=== PATIENT | female | born 1950 | race Caucasian/White ===

== ENCOUNTER 2021-02-19 20:40 | Inpatient (IN) ==
[2021-02-19] MEDS ORDERED: Vancomycin 2,000 MG/520 ML IV.SOLN IVPB ONE (22:17)
[2021-02-19] MEDS ORDERED: Piperacillin/Tazobactam 3.375 GM in 0.9 % Sodium Chloride Mini Bag 100 ML IVPB ONE (22:17)
[2021-02-19] MEDS ORDERED: Tdap (Boostrix) Vaccine 0.5 ML SYRINGE IM ONE (22:18)
[2021-02-19 22:53] LABS: Basophils # 0.1 K/mcL (0.0-0.2); Basophils % 0.4 %; Eosinophils # 0.2 K/mcL (0.0-0.6); Eosinophils % 1.7 %; Hematocrit 22.7 % (35.3-44.9); Hemoglobin 6.9 g/dL (11.5-15.4); Immature Granulocytes % 0.5 % (0-4); Lymphocytes # 1.9 K/mcL (0.6-4.6); Lymphocytes % 16.3 %; Mean Corpuscular HGB Conc 30.4 g/dL (31.6-35.5); Mean Corpuscular Hemoglobin 27.4 pg (28.0-33.3); Mean Corpuscular Volume 90.1 fL (83.0-100.0); Mean Platelet Volume 9.8 fL (9.4-12.4); Monocytes # 0.9 K/mcL (0.0-1.3); Monocytes % 7.5 %; Neutrophils # 8.4 K/mcL (1.6-8.9); Platelet Count 313 K/mcL (140-400); Red Blood Count 2.52 M/mcL (3.82-4.97); Red Cell Distribution Width 14.8 % (11.5-14.5); Segmented Neutrophils % 73.6 %; White Blood Count 11.4 K/mcL (4.3-11.1)
[2021-02-19 23:15] LABS: BUN/Creatinine Ratio 31 (6-26); Blood Urea Nitrogen 31 mg/dL (8-23); Calcium 9.3 mg/dL (8.6-10.3); Carbon Dioxide 24 mEq/L (23-29); Chloride 103 mEq/L (98-107); Glucose 118 mg/dL (70-105); Osmolality,Calculated 290 (280-300); Sodium 136 mEq/L (136-145); eGFR For African Americans > 60 (> 60); eGFR For Non-African Americans 55 (> 60)
[2021-02-19] MEDS ORDERED: Isovue-370 500 ML BOTTLE IVP ONE (23:49)
[2021-02-20] MEDS ORDERED: Naloxone 0.4 MG/ML INJ IVP PRN (00:46)
[2021-02-20] MEDS ORDERED: Melatonin 3 MG TABLET PO PRN (00:46)
[2021-02-20] MEDS ORDERED: *HR* Dextrose 50 % in Water (Syg) 50 ML SYRINGE IVP PRN (00:51)
[2021-02-20] MEDS ORDERED: D5% in Water 1,000 ML IVC PRN (00:51)
[2021-02-20] MEDS ORDERED: Dextrose Gel 15 GM/37.5 ML TUBE PO PRN ×2 (00:51)
[2021-02-20] MEDS ORDERED: *HR* OxyCODONE Immed Rel 5 MG TABLET PO ONE (01:04)
[2021-02-20] MEDS ORDERED: 0.9 % Sodium Chloride 250 ML ONE (03:13)
[2021-02-20] MEDS: lisinopriL 10 MG TABLET PO SCH (08:20)
[2021-02-20] MEDS: *HR* OxyCODONE Immed Rel 5 MG TABLET PO PRN ×2 (08:20→21:23)
[2021-02-20] MEDS: Insulin LISPRO 300 UNITS/3 ML VIAL SUBQ SCH ×3 (08:21→17:43)
[2021-02-20] MEDS ORDERED: Iron Sucrose Complex 200 MG in 0.9 % Sodium Chloride 100 ML IVPB ONE (09:00)
[2021-02-20 09:16] LABS: BUN/Creatinine Ratio 30 (6-26); Blood Urea Nitrogen 24 mg/dL (8-23); Calcium 8.7 mg/dL (8.6-10.3); Carbon Dioxide 27 mEq/L (23-29); Chloride 106 mEq/L (98-107); Glucose 134 mg/dL (70-105); Osmolality,Calculated 292 (280-300); Potassium 3.9 mEq/L (3.5-5.1); Sodium 138 mEq/L (136-145); eGFR For African Americans > 60 (> 60); eGFR For Non-African Americans > 60 (> 60)
[2021-02-20 09:18] LABS: Hematocrit 24.8 % (35.3-44.9); Hemoglobin 7.6 g/dL (11.5-15.4); Mean Corpuscular HGB Conc 30.6 g/dL (31.6-35.5); Mean Corpuscular Hemoglobin 27.9 pg (28.0-33.3); Mean Corpuscular Volume 91.2 fL (83.0-100.0); Mean Platelet Volume 10.3 fL (9.4-12.4); Platelet Count 307 K/mcL (140-400); Red Blood Count 2.72 M/mcL (3.82-4.97); White Blood Count 10.4 K/mcL (4.3-11.1)
[2021-02-20] MEDS: Piperacillin/Tazobactam 3.375 GM in 0.9 % Sodium Chloride Mini Bag 100 ML IVPB SCH ×2 (09:36→17:42)
[2021-02-20] MEDS ORDERED: Ampicillin/Sulbactam 3,000 MG in 0.9 % Sodium Chloride Mini Bag 100 ML IVPB SCH (10:00)
[2021-02-20] MEDS: Vancomycin 1,250 MG/262.5 ML IV.SOLN IVPB SCH ×2 (12:05→22:30)
[2021-02-20 15:06] LABS: Estimated Average Glucose 123 mg/dl; Hemoglobin A1C 5.9 %
[2021-02-20] MEDS ORDERED: Clindamycin 900 MG/50 ML 900 MG/50 ML IV.SOLN IVPB SCH (16:00)
[2021-02-20] MEDS: *HR* Heparin 5,000 UNIT/ML VIAL SQ SCH (17:43)
[2021-02-20] MEDS ORDERED: Sennosides/Docusate Sodium TABLET PO PRN (17:45)
[2021-02-20] MEDS ORDERED: Insulin LISPRO 300 UNITS/3 ML VIAL SUBQ SCH (21:00)
[2021-02-20] MEDS: Lactobacillus 1 EACH CAP.SPRINK PO SCH (21:15)
[2021-02-20] MEDS: Clindamycin 900 MG/50 ML 900 MG/50 ML IV.SOLN IVPB SCH (21:32)
[2021-02-20] MEDS ORDERED: Nystatin Cream 15 GM TUBE TP PRN (21:55)
[2021-02-21 03:00] LABS: Basophils # 0.1 K/mcL (0.0-0.2); Basophils % 0.5 %; Eosinophils # 0.2 K/mcL (0.0-0.6); Eosinophils % 1.4 %; Hematocrit 23.5 % (35.3-44.9); Hemoglobin 7.2 g/dL (11.5-15.4); Immature Granulocytes % 0.4 % (0-4); Lymphocytes # 1.5 K/mcL (0.6-4.6); Lymphocytes % 13.6 %; Mean Corpuscular HGB Conc 30.6 g/dL (31.6-35.5); Mean Corpuscular Hemoglobin 27.6 pg (28.0-33.3); Mean Platelet Volume 10.1 fL (9.4-12.4); Monocytes # 0.8 K/mcL (0.0-1.3); Monocytes % 7.5 %; Neutrophils # 8.5 K/mcL (1.6-8.9); Platelet Count 301 K/mcL (140-400); Red Blood Count 2.61 M/mcL (3.82-4.97); Red Cell Distribution Width 14.9 % (11.5-14.5); Segmented Neutrophils % 76.6 %; White Blood Count 11.1 K/mcL (4.3-11.1)
[2021-02-21 03:13] LABS: Alanine Aminotransferase 14 Units/L (7-52); Albumin 3.2 g/dL (3.5-5.7); Albumin/Globulin Ratio 1.1 (1.1-2.2); Alkaline Phosphatase 72 Units/L (34-104); Aspartate Amino Transferase 12 Units/L (13-39); BUN/Creatinine Ratio 23 (6-26); Bilirubin,Total 0.4 mg/dL (0.3-1.0); Blood Urea Nitrogen 14 mg/dL (8-23); Calcium 8.5 mg/dL (8.6-10.3); Carbon Dioxide 26 mEq/L (23-29); Chloride 104 mEq/L (98-107); Glucose 119 mg/dL (70-105); Magnesium 1.7 mg/dL (1.6-2.6); Osmolality,Calculated 286 (280-300); Phosphorous 2.6 mg/dL (2.7-4.5); Potassium 4.1 mEq/L (3.5-5.1); Sodium 137 mEq/L (136-145); Total Protein 6.2 g/dL (6.4-8.9); eGFR For African Americans > 60 (> 60); eGFR For Non-African Americans > 60 (> 60)
[2021-02-21] MEDS: Piperacillin/Tazobactam 3.375 GM in 0.9 % Sodium Chloride Mini Bag 100 ML IVPB SCH ×3 (03:35→18:56)
[2021-02-21] MEDS: *HR* Heparin 5,000 UNIT/ML VIAL SQ SCH (05:45)
[2021-02-21] MEDS: *HR* OxyCODONE Immed Rel 5 MG TABLET PO PRN ×3 (05:51→23:13)
[2021-02-21] MEDS ORDERED: Levothyroxine 25 MCG TABLET PO SCH (06:30)
[2021-02-21] MEDS: Insulin LISPRO 300 UNITS/3 ML VIAL SUBQ SCH ×4 (07:58→20:21)
[2021-02-21] MEDS: Clindamycin 900 MG/50 ML 900 MG/50 ML IV.SOLN IVPB SCH ×3 (08:01→20:15)
[2021-02-21] MEDS ORDERED: Isosorbide MONOnitrate (24 HR) 30 MG TAB.ER.24H PO SCH (09:00)
[2021-02-21] MEDS ORDERED: BuPROPion XL (24 HR) 150 MG TABLET PO SCH (09:00)
[2021-02-21] MEDS ORDERED: Cholecalciferol (D-3) 1,000 UNIT (25MCG) TABLET PO SCH (09:00)
[2021-02-21] MEDS: carvediloL 25 MG TABLET PO SCH ×2 (09:55→19:11)
[2021-02-21] MEDS: Lactobacillus 1 EACH CAP.SPRINK PO SCH ×2 (09:55→19:51)
[2021-02-21] MEDS: lisinopriL 10 MG TABLET PO SCH (09:56)
[2021-02-21] MEDS: Vancomycin 1,250 MG/262.5 ML IV.SOLN IVPB SCH ×2 (11:41→23:12)
[2021-02-21] MEDS ORDERED: Lidocaine -MPF 2% 5 ML VIAL ONE (11:55)
[2021-02-21] MEDS ORDERED: Famotidine 20 MG/2 ML VIAL IVP ONE (12:54)
[2021-02-21] MEDS ORDERED: *HR* OxyCODONE/APAP 5/325 TABLET PO PRN (12:54)
[2021-02-21] MEDS ORDERED: Acetaminophen IV 1,000 MG/100 ML BAG IVPB ONE ×2 (13:00→19:00)
[2021-02-21] MEDS ORDERED: EPHEDrine 50 MG/ML VIAL ONE (13:44)
[2021-02-21] MEDS ORDERED: *HR* FentaNYL (PF) 100 MCG/2 ML VIAL ONE (14:01)
[2021-02-21] MEDS ORDERED: Scopolamine Patch 1.5 MG PATCH.TD72 TD ONE (15:15)
[2021-02-21] MEDS: *HR* HYDROmorphone PF 0.5 MG/0.5 ML SYRINGE IVP PRN ×3 (15:32→15:59)
[2021-02-21] MEDS ORDERED: Melatonin 3 MG TABLET PO PRN (17:24)
[2021-02-21] MEDS ORDERED: Naloxone 0.4 MG/ML INJ IVP PRN (17:24)
[2021-02-21] MEDS ORDERED: Nystatin Cream 15 GM TUBE TP PRN (17:24)
[2021-02-21] MEDS ORDERED: Sennosides/Docusate Sodium TABLET PO PRN (17:24)
[2021-02-21] MEDS ORDERED: Dextrose Gel 15 GM/37.5 ML TUBE PO PRN ×2 (17:24)
[2021-02-21] MEDS ORDERED: *HR* Dextrose 50 % in Water (Syg) 50 ML SYRINGE IVP PRN (17:24)
[2021-02-21] MEDS ORDERED: D5% in Water 1,000 ML IVC PRN (17:24)
[2021-02-21] MEDS ORDERED: Clindamycin 900 MG/50 ML 900 MG/50 ML IV.SOLN IVPB SCH (18:00)
[2021-02-21] MEDS: Isosorbide MONOnitrate (24 HR) 30 MG TAB.ER.24H PO SCH (19:51)
[2021-02-21] MEDS: carvediloL 6.25 MG TABLET PO SCH (23:23)
[2021-02-22] MEDS: Piperacillin/Tazobactam 3.375 GM in 0.9 % Sodium Chloride Mini Bag 100 ML IVPB SCH ×2 (01:02→08:35)
[2021-02-22] MEDS: Levothyroxine 25 MCG TABLET PO SCH (04:47)
[2021-02-22] MEDS: *HR* OxyCODONE Immed Rel 5 MG TABLET PO PRN ×2 (04:48→11:32)
[2021-02-22] MEDS: Clindamycin 900 MG/50 ML 900 MG/50 ML IV.SOLN IVPB SCH ×2 (04:49→11:30)
[2021-02-22 07:17] LABS: Basophils # 0.1 K/mcL (0.0-0.2); Basophils % 0.7 %; Eosinophils # 0.2 K/mcL (0.0-0.6); Eosinophils % 2.7 %; Hematocrit 23.7 % (35.3-44.9); Hemoglobin 7.3 g/dL (11.5-15.4); Immature Granulocytes % 0.4 % (0-4); Lymphocytes # 1.5 K/mcL (0.6-4.6); Lymphocytes % 19.8 %; Mean Corpuscular HGB Conc 30.8 g/dL (31.6-35.5); Mean Corpuscular Volume 90.8 fL (83.0-100.0); Mean Platelet Volume 9.7 fL (9.4-12.4); Monocytes # 0.6 K/mcL (0.0-1.3); Monocytes % 8.1 %; Platelet Count 273 K/mcL (140-400); Red Blood Count 2.61 M/mcL (3.82-4.97); Red Cell Distribution Width 15.1 % (11.5-14.5); Segmented Neutrophils % 68.3 %; White Blood Count 7.3 K/mcL (4.3-11.1)
[2021-02-22 07:26] LABS: Alanine Aminotransferase 11 Units/L (7-52); Albumin/Globulin Ratio 1.1 (1.1-2.2); Alkaline Phosphatase 69 Units/L (34-104); Aspartate Amino Transferase 10 Units/L (13-39); BUN/Creatinine Ratio 18 (6-26); Bilirubin,Total 0.5 mg/dL (0.3-1.0); Blood Urea Nitrogen 13 mg/dL (8-23); Calcium 8.4 mg/dL (8.6-10.3); Carbon Dioxide 27 mEq/L (23-29); Chloride 105 mEq/L (98-107); Globulin 2.8 g/dL (2.4-3.5); Glucose 107 mg/dL (70-105); Magnesium 1.8 mg/dL (1.6-2.6); Osmolality,Calculated 287 (280-300); Potassium 4.1 mEq/L (3.5-5.1); Sodium 138 mEq/L (136-145); Total Protein 5.8 g/dL (6.4-8.9); eGFR For African Americans > 60 (> 60); eGFR For Non-African Americans > 60 (> 60)
[2021-02-22] MEDS ORDERED: carvediloL 25 MG TABLET PO SCH (08:00)
[2021-02-22] MEDS: BuPROPion XL (24 HR) 150 MG TABLET PO SCH (08:30)
[2021-02-22] MEDS: Cholecalciferol (D-3) 1,000 UNIT (25MCG) TABLET PO SCH (08:31)
[2021-02-22] MEDS: Isosorbide MONOnitrate (24 HR) 30 MG TAB.ER.24H PO SCH ×2 (08:33→21:10)
[2021-02-22] MEDS: carvediloL 6.25 MG TABLET PO SCH ×2 (08:33→18:30)
[2021-02-22] MEDS: Lactobacillus 1 EACH CAP.SPRINK PO SCH ×2 (08:33→21:09)
[2021-02-22] MEDS: Insulin LISPRO 300 UNITS/3 ML VIAL SUBQ SCH ×4 (08:34→21:10)
[2021-02-22] MEDS: Calcium Gluconate 1gm/50mL 1 GM/50 ML BAG IVPB SCH ×3 (08:34→11:00)
[2021-02-22] MEDS ORDERED: lisinopriL 10 MG TABLET PO SCH (09:00)
[2021-02-22] MEDS: Vancomycin 1,250 MG/262.5 ML IV.SOLN IVPB SCH (11:28)
[2021-02-22] MEDS ORDERED: Ipratropium/Albuterol Neb 3 ML IH PRN (16:55)
[2021-02-22 17:32] LABS: ABG Base Excess 2 mEq/L (-2 to 3); ABG HCO3 27 mEq/L (21-27); ABG Oxygen Saturation 97 % (95-98); ABG PCO2 44 mmHg (35-45); ABG PH 7.39 pH Units (7.32-7.45); ABG PO2 95 mmHg (85-104); ABG TCO2 28 mEq/L (20-26)
[2021-02-22 17:57] LABS: Basophils % 0.5 %; Eosinophils # 0.2 K/mcL (0.0-0.6); Eosinophils % 3.3 %; Hematocrit 24.8 % (35.3-44.9); Hemoglobin 7.5 g/dL (11.5-15.4); Immature Granulocytes % 0.4 % (0-4); Lymphocytes # 1.4 K/mcL (0.6-4.6); Lymphocytes % 19.3 %; Mean Corpuscular HGB Conc 30.2 g/dL (31.6-35.5); Mean Corpuscular Hemoglobin 27.6 pg (28.0-33.3); Mean Corpuscular Volume 91.2 fL (83.0-100.0); Mean Platelet Volume 9.6 fL (9.4-12.4); Monocytes # 0.6 K/mcL (0.0-1.3); Monocytes % 7.9 %; Platelet Count 279 K/mcL (140-400); Red Blood Count 2.72 M/mcL (3.82-4.97); Red Cell Distribution Width 15.2 % (11.5-14.5); Segmented Neutrophils % 68.6 %; White Blood Count 7.3 K/mcL (4.3-11.1)
[2021-02-22 18:08] LABS: INR 1.4; Prothrombin Time 15.7 Seconds (9.4-12.1)
[2021-02-22 18:40] LABS: Folate 21.4 ng/mL (3.0-16.0)
[2021-02-22 18:44] LABS: Vitamin B12 > 1500 pg/mL (250-1100)
[2021-02-22] MEDS: QUEtiapine Fumarate 25 MG TABLET PO SCH (21:09)
[2021-02-22] MEDS: cephALEXin 500 MG CAPSULE PO SCH (21:09)
[2021-02-22] MEDS ORDERED: Haloperidol Lactate 5 MG/ML VIAL IM ONE ×2 (23:06→23:07)
[2021-02-23 00:33] LABS: Bacteria,Urine Few per hpf (None-Few); Bilirubin,Urine Negative (Negative); Blood,Urine Negative (Negative); Clarity,Urine Turbid (Clear); Color,Urine Light-Yellow (Yellow); Glucose,Urine (UA) Normal (Normal); Ketones,Urine Negative (Negative); Leukocyte Esterase,Urine Negative (Negative); Nitrite,Urine Negative (Negative); Protein,Urine Negative (Neg-Trace); RBC,Urine 15-30 per hpf (0-3); Specific Gravity,Urine 1.012 (1.010-1.025); Squamous Epithelial Cell,Urine Few per hpf (None-Few); Urobilinogen,Urine Normal (Normal); WBC,Urine 50-100 per hpf (0-3)
[2021-02-23] MEDS: *HR* OxyCODONE/APAP 5/325 TABLET PO PRN ×4 (01:23→22:22)
[2021-02-23 01:53] LABS: Basophils # 0.1 K/mcL (0.0-0.2); Basophils % 0.6 %; Eosinophils # 0.3 K/mcL (0.0-0.6); Hematocrit 25.1 % (35.3-44.9); Hemoglobin 7.6 g/dL (11.5-15.4); Immature Granulocytes % 0.4 % (0-4); Lymphocytes # 1.5 K/mcL (0.6-4.6); Lymphocytes % 18.6 %; Mean Corpuscular HGB Conc 30.3 g/dL (31.6-35.5); Mean Corpuscular Hemoglobin 27.1 pg (28.0-33.3); Mean Corpuscular Volume 89.6 fL (83.0-100.0); Mean Platelet Volume 9.8 fL (9.4-12.4); Monocytes # 0.6 K/mcL (0.0-1.3); Monocytes % 8.1 %; Neutrophils # 5.3 K/mcL (1.6-8.9); Platelet Count 302 K/mcL (140-400); Red Cell Distribution Width 14.7 % (11.5-14.5); Segmented Neutrophils % 68.3 %; White Blood Count 7.8 K/mcL (4.3-11.1)
[2021-02-23 02:11] LABS: Alanine Aminotransferase 11 Units/L (7-52); Albumin 3.2 g/dL (3.5-5.7); Albumin/Globulin Ratio 1.1 (1.1-2.2); Alkaline Phosphatase 73 Units/L (34-104); Aspartate Amino Transferase 10 Units/L (13-39); BUN/Creatinine Ratio 15 (6-26); Bilirubin,Total 0.4 mg/dL (0.3-1.0); Blood Urea Nitrogen 10 mg/dL (8-23); Calcium 9.3 mg/dL (8.6-10.3); Carbon Dioxide 24 mEq/L (23-29); Chloride 108 mEq/L (98-107); Glucose 112 mg/dL (70-105); Magnesium 1.8 mg/dL (1.6-2.6); Osmolality,Calculated 292 (280-300); Phosphorous 3.3 mg/dL (2.7-4.5); Potassium 3.6 mEq/L (3.5-5.1); Sodium 141 mEq/L (136-145); Total Protein 6.2 g/dL (6.4-8.9); eGFR For African Americans > 60 (> 60); eGFR For Non-African Americans > 60 (> 60)
[2021-02-23 02:14] LABS: % Iron Saturation 5 % (15-50); Iron 15 mcg/dL (50-170); Transferrin 206 mg/dL (203-362)
[2021-02-23 02:29] LABS: Ferritin 155 ng/mL (10-120)
[2021-02-23] MEDS: Levothyroxine 25 MCG TABLET PO SCH (05:27)
[2021-02-23] MEDS ORDERED: Iron Sucrose Complex 400 MG in 0.9 % Sodium Chloride 250 ML IVPB ONE (07:28)
[2021-02-23] MEDS: Lactobacillus 1 EACH CAP.SPRINK PO SCH ×2 (08:34→19:15)
[2021-02-23] MEDS: Cholecalciferol (D-3) 1,000 UNIT (25MCG) TABLET PO SCH (08:34)
[2021-02-23] MEDS: carvediloL 6.25 MG TABLET PO SCH ×2 (08:34→16:20)
[2021-02-23] MEDS: Isosorbide MONOnitrate (24 HR) 30 MG TAB.ER.24H PO SCH ×2 (08:34→19:15)
[2021-02-23] MEDS: Sulfamethoxazole/Trimeth DS 1 EACH TABLET PO SCH ×2 (08:35→19:15)
[2021-02-23] MEDS: Insulin LISPRO 300 UNITS/3 ML VIAL SUBQ SCH ×4 (08:36→19:16)
[2021-02-23] MEDS: cephALEXin 500 MG CAPSULE PO SCH ×3 (08:38→19:15)
[2021-02-23] MEDS: BuPROPion XL (24 HR) 150 MG TABLET PO SCH (08:42)
[2021-02-23] MEDS: QUEtiapine Fumarate 25 MG TABLET PO SCH (19:15)
[2021-02-23] MEDS ORDERED: Morphine Sulfate 2 MG/ML SYRINGE IVP ONE (23:24)
[2021-02-24] MEDS: Levothyroxine 25 MCG TABLET PO SCH (06:01)
[2021-02-24] MEDS: *HR* OxyCODONE/APAP 5/325 TABLET PO PRN (06:01)
[2021-02-24 07:33] LABS: Hematocrit 25.2 % (35.3-44.9); Hemoglobin 7.6 g/dL (11.5-15.4); Mean Corpuscular HGB Conc 30.2 g/dL (31.6-35.5); Mean Corpuscular Hemoglobin 27.2 pg (28.0-33.3); Mean Corpuscular Volume 90.3 fL (83.0-100.0); Mean Platelet Volume 9.6 fL (9.4-12.4); Platelet Count 282 K/mcL (140-400); Red Blood Count 2.79 M/mcL (3.82-4.97); Red Cell Distribution Width 14.9 % (11.5-14.5); White Blood Count 6.1 K/mcL (4.3-11.1)
[2021-02-24] MEDS: Insulin LISPRO 300 UNITS/3 ML VIAL SUBQ SCH ×4 (07:51→20:55)
[2021-02-24] MEDS: Lactobacillus 1 EACH CAP.SPRINK PO SCH ×2 (07:51→19:08)
[2021-02-24] MEDS: carvediloL 6.25 MG TABLET PO SCH ×2 (07:51→16:10)
[2021-02-24] MEDS: NIFEdipine XL (24 HR) 30 MG TAB.ER.24 PO SCH (07:52)
[2021-02-24] MEDS: Cholecalciferol (D-3) 1,000 UNIT (25MCG) TABLET PO SCH (07:52)
[2021-02-24] MEDS: BuPROPion XL (24 HR) 150 MG TABLET PO SCH (07:52)
[2021-02-24] MEDS: Sulfamethoxazole/Trimeth DS 1 EACH TABLET PO SCH ×2 (07:52→19:09)
[2021-02-24] MEDS: cephALEXin 500 MG CAPSULE PO SCH ×3 (07:52→19:08)
[2021-02-24] MEDS: Isosorbide MONOnitrate (24 HR) 30 MG TAB.ER.24H PO SCH ×2 (07:53→19:09)
[2021-02-24 07:56] LABS: BUN/Creatinine Ratio 10 (6-26); Blood Urea Nitrogen 7 mg/dL (8-23); Calcium 9.1 mg/dL (8.6-10.3); Carbon Dioxide 28 mEq/L (23-29); Chloride 105 mEq/L (98-107); Glucose 97 mg/dL (70-105); Magnesium 1.8 mg/dL (1.6-2.6); Osmolality,Calculated 288 (280-300); Phosphorous 3.6 mg/dL (2.7-4.5); Potassium 3.9 mEq/L (3.5-5.1); Sodium 140 mEq/L (136-145); eGFR For African Americans > 60 (> 60); eGFR For Non-African Americans > 60 (> 60)
[2021-02-24] MEDS ORDERED: Scopolamine Patch 1.5 MG PATCH.TD72 TD SCH (09:00)
[2021-02-24] MEDS: Scopolamine Patch 1.5 MG PATCH.TD72 TD SCH (09:18)
[2021-02-24] MEDS ORDERED: *HR* OxyCODONE/APAP 5/325 TABLET PO PRN (12:53)
[2021-02-24] MEDS: *HR* OxyCODONE Immed Rel 5 MG TABLET PO PRN ×2 (13:59→22:11)
[2021-02-24] MEDS: QUEtiapine Fumarate 25 MG TABLET PO SCH (19:08)
[2021-02-25 00:41] LABS: Hematocrit 26.6 % (35.3-44.9); Hemoglobin 8.4 g/dL (11.5-15.4); Mean Corpuscular HGB Conc 31.6 g/dL (31.6-35.5); Mean Corpuscular Hemoglobin 28.1 pg (28.0-33.3); Mean Platelet Volume 9.8 fL (9.4-12.4); Platelet Count 328 K/mcL (140-400); Red Blood Count 2.99 M/mcL (3.82-4.97); White Blood Count 8.7 K/mcL (4.3-11.1)
[2021-02-25 01:02] LABS: BUN/Creatinine Ratio 13 (6-26); Blood Urea Nitrogen 9 mg/dL (8-23); Calcium 9.3 mg/dL (8.6-10.3); Carbon Dioxide 27 mEq/L (23-29); Chloride 103 mEq/L (98-107); Glucose 106 mg/dL (70-105); Magnesium 1.6 mg/dL (1.6-2.6); Osmolality,Calculated 285 (280-300); Phosphorous 3.5 mg/dL (2.7-4.5); Potassium 3.9 mEq/L (3.5-5.1); Sodium 138 mEq/L (136-145); eGFR For African Americans > 60 (> 60); eGFR For Non-African Americans > 60 (> 60)
[2021-02-25] MEDS: Levothyroxine 25 MCG TABLET PO SCH (04:59)
[2021-02-25] MEDS: Sulfamethoxazole/Trimeth DS 1 EACH TABLET PO SCH ×2 (07:42→21:49)
[2021-02-25] MEDS: NIFEdipine XL (24 HR) 30 MG TAB.ER.24 PO SCH (07:42)
[2021-02-25] MEDS: BuPROPion XL (24 HR) 150 MG TABLET PO SCH (07:43)
[2021-02-25] MEDS: cephALEXin 500 MG CAPSULE PO SCH ×3 (07:43→21:49)
[2021-02-25] MEDS: Insulin LISPRO 300 UNITS/3 ML VIAL SUBQ SCH ×4 (07:44→21:49)
[2021-02-25] MEDS: Isosorbide MONOnitrate (24 HR) 30 MG TAB.ER.24H PO SCH ×2 (07:44→21:49)
[2021-02-25] MEDS: carvediloL 6.25 MG TABLET PO SCH ×2 (07:44→16:11)
[2021-02-25] MEDS: Lactobacillus 1 EACH CAP.SPRINK PO SCH ×2 (07:44→21:49)
[2021-02-25] MEDS ORDERED: Saliva Stimulant 44.3ml BOTTLE PO PRN (10:01)
[2021-02-25] MEDS: *HR* OxyCODONE Immed Rel 5 MG TABLET PO PRN ×2 (10:50→16:52)
[2021-02-25] MEDS: Cholecalciferol (D-3) 1,000 UNIT (25MCG) TABLET PO SCH (10:50)
[2021-02-25] MEDS: QUEtiapine Fumarate 25 MG TABLET PO SCH (21:49)
[2021-02-26] MEDS: *HR* OxyCODONE Immed Rel 5 MG TABLET PO PRN ×3 (00:39→18:24)
[2021-02-26] MEDS: Levothyroxine 25 MCG TABLET PO SCH (05:03)
[2021-02-26] MEDS: *HR* Enoxaparin 40 MG/0.4 ML SYRINGE SQ SCH (05:04)
[2021-02-26 07:04] LABS: Hematocrit 29.9 % (35.3-44.9); Hemoglobin 8.9 g/dL (11.5-15.4); Mean Corpuscular HGB Conc 29.8 g/dL (31.6-35.5); Mean Corpuscular Hemoglobin 27.3 pg (28.0-33.3); Mean Corpuscular Volume 91.7 fL (83.0-100.0); Mean Platelet Volume 9.7 fL (9.4-12.4); Platelet Count 325 K/mcL (140-400); Red Blood Count 3.26 M/mcL (3.82-4.97); Red Cell Distribution Width 15.5 % (11.5-14.5); White Blood Count 10.3 K/mcL (4.3-11.1)
[2021-02-26 07:40] LABS: BUN/Creatinine Ratio 17 (6-26); Blood Urea Nitrogen 15 mg/dL (8-23); Calcium 9.5 mg/dL (8.6-10.3); Carbon Dioxide 27 mEq/L (23-29); Chloride 103 mEq/L (98-107); Glucose 130 mg/dL (70-105); Magnesium 1.8 mg/dL (1.6-2.6); Osmolality,Calculated 287 (280-300); Phosphorous 3.8 mg/dL (2.7-4.5); Potassium 3.9 mEq/L (3.5-5.1); Sodium 137 mEq/L (136-145); eGFR For African Americans > 60 (> 60); eGFR For Non-African Americans > 60 (> 60)
[2021-02-26] MEDS: Insulin LISPRO 300 UNITS/3 ML VIAL SUBQ SCH ×4 (08:04→22:15)
[2021-02-26] MEDS: Isosorbide MONOnitrate (24 HR) 30 MG TAB.ER.24H PO SCH ×2 (08:45→22:15)
[2021-02-26] MEDS: Sulfamethoxazole/Trimeth DS 1 EACH TABLET PO SCH ×2 (08:45→22:15)
[2021-02-26] MEDS: BuPROPion XL (24 HR) 150 MG TABLET PO SCH (08:46)
[2021-02-26] MEDS: NIFEdipine XL (24 HR) 30 MG TAB.ER.24 PO SCH (08:46)
[2021-02-26] MEDS: cephALEXin 500 MG CAPSULE PO SCH ×3 (08:46→22:14)
[2021-02-26] MEDS: Lactobacillus 1 EACH CAP.SPRINK PO SCH ×2 (08:46→22:14)
[2021-02-26] MEDS: Aspirin 81 MG TAB.CHEW PO SCH (08:46)
[2021-02-26] MEDS: Cholecalciferol (D-3) 1,000 UNIT (25MCG) TABLET PO SCH (08:46)
[2021-02-26] MEDS: carvediloL 6.25 MG TABLET PO SCH ×2 (08:46→16:08)
[2021-02-26] MEDS: QUEtiapine Fumarate 25 MG TABLET PO SCH (22:14)
[2021-02-27] MEDS: Levothyroxine 25 MCG TABLET PO SCH (05:23)
[2021-02-27] MEDS: *HR* OxyCODONE Immed Rel 5 MG TABLET PO PRN ×2 (05:23→13:23)
[2021-02-27] MEDS: *HR* Enoxaparin 40 MG/0.4 ML SYRINGE SQ SCH (05:24)
[2021-02-27] MEDS: Lactobacillus 1 EACH CAP.SPRINK PO SCH (07:54)
[2021-02-27] MEDS: Isosorbide MONOnitrate (24 HR) 30 MG TAB.ER.24H PO SCH (07:54)
[2021-02-27] MEDS: BuPROPion XL (24 HR) 150 MG TABLET PO SCH (07:54)
[2021-02-27] MEDS: Cholecalciferol (D-3) 1,000 UNIT (25MCG) TABLET PO SCH (07:55)
[2021-02-27] MEDS: NIFEdipine XL (24 HR) 30 MG TAB.ER.24 PO SCH (07:55)
[2021-02-27] MEDS: Sulfamethoxazole/Trimeth DS 1 EACH TABLET PO SCH (07:55)
[2021-02-27] MEDS: Aspirin 81 MG TAB.CHEW PO SCH (07:55)
[2021-02-27] MEDS: Scopolamine Patch 1.5 MG PATCH.TD72 TD SCH (07:55)
[2021-02-27] MEDS: carvediloL 6.25 MG TABLET PO SCH (07:55)
[2021-02-27] MEDS: cephALEXin 500 MG CAPSULE PO SCH (07:55)
[2021-02-27] MEDS: Insulin LISPRO 300 UNITS/3 ML VIAL SUBQ SCH ×2 (08:03→13:28)
[2021-02-27 10:59] VITALS: BP 126/82; PULSE 111; TEMP 97.8; O2SAT 93
[2021-02-27 14:25] LABS: Adenovirus Not Detected (Not Detect); Bordetella Pertussis Not Detected (Not Detect); Chlamydophila pneumoniae Not Detected (Not Detect); Coronavirus 229E Not Detected (Not Detect); Coronavirus HKU1 Not Detected (Not Detect); Coronavirus NL63 Not Detected (Not Detect); Coronavirus OC43 Not Detected (Not Detect); Human Metapneumovirus Not Detected (Not Detect); Human Rhinovirus/Enterovirus Not Detected (Not Detect); Influenza A Subtype 2009 H1 Not Detected (Not Detect); Influenza B Not Detected (Not Detect); Mycoplasma pneumoniae Not Detected (Not Detect); Parainfluenza Virus 1 Not Detected (Not Detect); Parainfluenza Virus 2 Not Detected (Not Detect); Parainfluenza Virus 3 Not Detected (Not Detect); Parainfluenza Virus 4 Not Detected (Not Detect); Respiratory Syncytial Virus Not Detected (Not Detect); SARS-CoV-2 Not Detected (Not Detect)
== END 2021-02-27 18:34 | DRG 577 ==
LOC: EMEROOARM 20:40 → 2ANU 20:40 → SUATTDRO 02-20 00:40 → 2ANU 02-20 01:26 → SUATTDRO 02-20 14:49 → 2ANU 02-22 23:40
PROVIDERS: ADMIT Student in an Organized Health Care Education/Training Program; ATTEND Pharmacist

== ENCOUNTER 2021-06-22 15:24 | Inpatient (IN) ==
[2021-06-22] MEDS ORDERED: Metoclopramide 10 MG/2 ML VIAL IVP ONE (16:50)
[2021-06-22] MEDS ORDERED: Morphine Sulfate 2 MG/ML SYRINGE IVP ONE (16:56)
[2021-06-22 17:24] LABS: Basophils % 0.2 %; Eosinophils # 0.1 K/mcL (0.0-0.6); Eosinophils % 0.3 %; Hematocrit 31.8 % (35.3-44.9); Hemoglobin 9.5 g/dL (11.5-15.4); Immature Granulocytes % 0.9 % (0-4); Lymphocytes % 6.6 %; Mean Corpuscular HGB Conc 29.9 g/dL (31.6-35.5); Mean Corpuscular Hemoglobin 26.2 pg (28.0-33.3); Mean Corpuscular Volume 87.6 fL (83.0-100.0); Mean Platelet Volume 9.9 fL (9.4-12.4); Monocytes # 0.7 K/mcL (0.0-1.3); Monocytes % 4.4 %; Neutrophils # 13.9 K/mcL (1.6-8.9); Platelet Count 194 K/mcL (140-400); Red Blood Count 3.63 M/mcL (3.82-4.97); Red Cell Distribution Width 15.9 % (11.5-14.5); Segmented Neutrophils % 87.6 %; White Blood Count 15.9 K/mcL (4.3-11.1)
[2021-06-22 17:49] LABS: BUN/Creatinine Ratio 28 (6-26); Blood Urea Nitrogen 16 mg/dL (8-23); Calcium 10.1 mg/dL (8.6-10.3); Carbon Dioxide 30 mEq/L (23-29); Chloride 99 mEq/L (98-107); Glucose 114 mg/dL (70-105); Osmolality,Calculated 282 (280-300); Potassium 4.3 mEq/L (3.5-5.1); Sodium 135 mEq/L (136-145); eGFR For African Americans > 60 (> 60); eGFR For Non-African Americans > 60 (> 60)
[2021-06-22] MEDS ORDERED: Vancomycin 2,000 MG/520 ML IV.SOLN IVPB ONE (18:00)
[2021-06-22] MEDS ORDERED: Morphine Sulfate 2 MG/ML SYRINGE IVP PRN (19:15)
[2021-06-22] MEDS ORDERED: D5% in Water 1,000 ML IVC PRN (21:11)
[2021-06-22] MEDS ORDERED: Dextrose Gel 15 GM/37.5 ML TUBE PO PRN ×2 (21:11)
[2021-06-22] MEDS ORDERED: *HR* Dextrose 50 % in Water (Syg) 50 ML SYRINGE IVP PRN (21:11)
[2021-06-22] MEDS: Insulin LISPRO 300 UNITS/3 ML VIAL SUBQ SCH (21:30)
[2021-06-22] MEDS ORDERED: Acetaminophen 325 MG TABLET PO PRN (21:33)
[2021-06-22] MEDS ORDERED: Naloxone 0.4 MG/ML INJ IVP PRN (21:33)
[2021-06-22] MEDS: *HR* HYDROmorphone 2 MG TABLET PO PRN (22:16)
[2021-06-22] MEDS: *HR* Heparin 5,000 UNIT/ML VIAL SQ SCH (22:17)
[2021-06-23] MEDS: Piperacillin/Tazobactam 3.375 GM in 0.9 % Sodium Chloride Mini Bag 100 ML IVPB SCH ×4 (01:26→23:59)
[2021-06-23] MEDS: *HR* HYDROmorphone 2 MG TABLET PO PRN (02:27)
[2021-06-23 02:46] LABS: Amorphous Sediment,Urine Few per hpf (None-Few); Bacteria,Urine Few per hpf (None-Few); Bilirubin,Urine Negative (Negative); Blood,Urine Negative (Negative); Calcium Oxalate Crystals,Urine Present per hpf; Clarity,Urine Turbid (Clear); Color,Urine Light-Yellow (Yellow); Glucose,Urine (UA) Normal (Normal); Ketones,Urine Negative (Negative); Leukocyte Esterase,Urine Moderate (Negative); Mucus,Urine Few per lpf (None-Few); Nitrite,Urine Negative (Negative); Protein,Urine Trace mg/dL (Neg-Trace); RBC,Urine 0-3 per hpf (0-3); Specific Gravity,Urine 1.011 (1.010-1.025); Squamous Epithelial Cell,Urine Few per hpf (None-Few); Urobilinogen,Urine Normal (Normal); WBC,Urine 30-50 per hpf (0-3)
[2021-06-23] MEDS: *HR* HYDROcodone/Acet 5/325 mg TABLET PO PRN ×2 (06:33→18:13)
[2021-06-23] MEDS: *HR* Heparin 5,000 UNIT/ML VIAL SQ SCH (06:34)
[2021-06-23 06:42] LABS: Hematocrit 30.9 % (35.3-44.9); Hemoglobin 9.6 g/dL (11.5-15.4); Mean Corpuscular HGB Conc 31.1 g/dL (31.6-35.5); Mean Platelet Volume 10.6 fL (9.4-12.4); Platelet Count 197 K/mcL (140-400); Red Blood Count 3.55 M/mcL (3.82-4.97); Red Cell Distribution Width 15.7 % (11.5-14.5); White Blood Count 13.1 K/mcL (4.3-11.1)
[2021-06-23 07:07] LABS: % Iron Saturation 8 % (15-50); Iron 22 mcg/dL (50-170); Transferrin 186 mg/dL (203-362)
[2021-06-23 07:09] LABS: BUN/Creatinine Ratio 26 (6-26); Blood Urea Nitrogen 17 mg/dL (8-23); Calcium 9.3 mg/dL (8.6-10.3); Carbon Dioxide 31 mEq/L (23-29); Chloride 99 mEq/L (98-107); Chol/HDL Ratio 3.7 (0-4.9); Cholesterol 108 mg/dL (< 200); Glucose 103 mg/dL (70-105); HDL Cholesterol 29 mg/dL (40-59); LDL Cholesterol,Calculated 65 mg/dL (< 100); Magnesium 1.6 mg/dL (1.6-2.6); Osmolality,Calculated 284 (280-300); Sodium 136 mEq/L (136-145); Triglycerides 68 mg/dL (< 150); eGFR For African Americans > 60 (> 60); eGFR For Non-African Americans > 60 (> 60)
[2021-06-23 07:17] LABS: Ferritin 120 ng/mL (10-120)
[2021-06-23] MEDS: Insulin LISPRO 300 UNITS/3 ML VIAL SUBQ SCH ×4 (08:31→19:38)
[2021-06-23] MEDS: BuPROPion XL (24 HR) 150 MG TABLET PO SCH (08:37)
[2021-06-23] MEDS: Vancomycin 1,250 MG/262.5 ML IV.SOLN IVPB SCH ×2 (08:37→19:37)
[2021-06-23] MEDS: lisinopriL 10 MG TABLET PO SCH (08:38)
[2021-06-23] MEDS: Aspirin Enteric Coated 81 MG Tablet PO SCH (08:38)
[2021-06-23] MEDS: Isosorbide MONOnitrate (24 HR) 30 MG TAB.ER.24H PO SCH ×2 (08:38→19:38)
[2021-06-23] MEDS: Nystatin Cream 15 GM TUBE TP SCH ×3 (08:43→19:38)
[2021-06-23 09:10] LABS: Folate 15.3 ng/mL (3.0-16.0)
[2021-06-23 10:03] LABS: Estimated Average Glucose 137 mg/dl; Hemoglobin A1C 6.4 %
[2021-06-24] MEDS: *HR* HYDROcodone/Acet 5/325 mg TABLET PO PRN ×3 (02:51→19:49)
[2021-06-24] MEDS: *HR* Enoxaparin 40 MG/0.4 ML SYRINGE SQ SCH (06:33)
[2021-06-24 06:43] LABS: Hematocrit 28.1 % (35.3-44.9); Hemoglobin 8.7 g/dL (11.5-15.4); Mean Corpuscular Hemoglobin 27.1 pg (28.0-33.3); Mean Corpuscular Volume 87.5 fL (83.0-100.0); Mean Platelet Volume 10.3 fL (9.4-12.4); Platelet Count 202 K/mcL (140-400); Red Blood Count 3.21 M/mcL (3.82-4.97); Red Cell Distribution Width 15.7 % (11.5-14.5); White Blood Count 7.8 K/mcL (4.3-11.1)
[2021-06-24 07:02] LABS: BUN/Creatinine Ratio 30 (6-26); Blood Urea Nitrogen 20 mg/dL (8-23); Calcium 9.2 mg/dL (8.6-10.3); Carbon Dioxide 29 mEq/L (23-29); Chloride 101 mEq/L (98-107); Glucose 182 mg/dL (70-105); Osmolality,Calculated 287 (280-300); Potassium 3.7 mEq/L (3.5-5.1); Sodium 135 mEq/L (136-145); eGFR For African Americans > 60 (> 60); eGFR For Non-African Americans > 60 (> 60)
[2021-06-24 07:18] LABS: Thyroid Stimulating Hormone 7.191 mcIU/mL (0.340-5.600)
[2021-06-24 07:19] LABS: Triiodothyronine (T3) Free 2.48 pg/mL (2.50-3.90)
[2021-06-24] MEDS: BuPROPion XL (24 HR) 150 MG TABLET PO SCH (08:28)
[2021-06-24] MEDS: Isosorbide MONOnitrate (24 HR) 30 MG TAB.ER.24H PO SCH ×2 (08:28→19:49)
[2021-06-24] MEDS: lisinopriL 10 MG TABLET PO SCH (08:28)
[2021-06-24] MEDS: Piperacillin/Tazobactam 3.375 GM in 0.9 % Sodium Chloride Mini Bag 100 ML IVPB SCH ×3 (08:28→23:01)
[2021-06-24] MEDS: Aspirin Enteric Coated 81 MG Tablet PO SCH (08:28)
[2021-06-24] MEDS: Insulin LISPRO 300 UNITS/3 ML VIAL SUBQ SCH ×4 (08:55→19:50)
[2021-06-24] MEDS: Nystatin Cream 15 GM TUBE TP SCH ×3 (15:10→20:35)
[2021-06-24] MEDS ORDERED: Nitroglycerin 0.4 MG TAB.SUBL SL PRN (18:27)
[2021-06-25] MEDS ORDERED: hydrOXYzine pamoate 25 MG CAPSULE PO ONE (01:28)
[2021-06-25 01:34] LABS: Basophils % 0.5 %; Eosinophils # 0.2 K/mcL (0.0-0.6); Eosinophils % 2.3 %; Hematocrit 27.5 % (35.3-44.9); Hemoglobin 8.6 g/dL (11.5-15.4); Immature Granulocytes % 0.4 % (0-4); Lymphocytes # 1.8 K/mcL (0.6-4.6); Lymphocytes % 22.7 %; Mean Corpuscular HGB Conc 31.3 g/dL (31.6-35.5); Mean Corpuscular Volume 86.2 fL (83.0-100.0); Mean Platelet Volume 10.2 fL (9.4-12.4); Monocytes # 0.6 K/mcL (0.0-1.3); Monocytes % 7.7 %; Neutrophils # 5.1 K/mcL (1.6-8.9); Platelet Count 209 K/mcL (140-400); Red Blood Count 3.19 M/mcL (3.82-4.97); Red Cell Distribution Width 15.6 % (11.5-14.5); Segmented Neutrophils % 66.4 %; White Blood Count 7.7 K/mcL (4.3-11.1)
[2021-06-25 01:55] LABS: Alanine Aminotransferase 13 Units/L (7-52); Albumin 2.9 g/dL (3.5-5.7); Albumin/Globulin Ratio 0.9 (1.1-2.2); Alkaline Phosphatase 69 Units/L (34-104); Aspartate Amino Transferase 12 Units/L (13-39); BUN/Creatinine Ratio 23 (6-26); Bilirubin,Indirect 0.3 mg/dL (0.0-1.0); Bilirubin,Total 0.3 mg/dL (0.3-1.0); Blood Urea Nitrogen 15 mg/dL (8-23); Carbon Dioxide 29 mEq/L (23-29); Chloride 103 mEq/L (98-107); Globulin 3.3 g/dL (2.4-3.5); Glucose 119 mg/dL (70-105); Magnesium 1.6 mg/dL (1.6-2.6); Osmolality,Calculated 286 (280-300); Potassium 3.9 mEq/L (3.5-5.1); Sodium 137 mEq/L (136-145); Total Protein 6.2 g/dL (6.4-8.9); eGFR For African Americans > 60 (> 60); eGFR For Non-African Americans > 60 (> 60)
[2021-06-25] MEDS: *HR* Enoxaparin 40 MG/0.4 ML SYRINGE SQ SCH (06:46)
[2021-06-25] MEDS: Isosorbide MONOnitrate (24 HR) 30 MG TAB.ER.24H PO SCH ×2 (08:34→20:52)
[2021-06-25] MEDS: BuPROPion XL (24 HR) 150 MG TABLET PO SCH (08:34)
[2021-06-25] MEDS: Aspirin Enteric Coated 81 MG Tablet PO SCH (08:34)
[2021-06-25] MEDS: carvediloL 6.25 MG TABLET PO SCH ×2 (08:35→17:29)
[2021-06-25] MEDS: Vitamin B Complex/Vit C/Vit E 1 EACH TABLET PO SCH (08:35)
[2021-06-25] MEDS: Insulin LISPRO 300 UNITS/3 ML VIAL SUBQ SCH ×4 (08:59→20:53)
[2021-06-25] MEDS: Piperacillin/Tazobactam 3.375 GM in 0.9 % Sodium Chloride Mini Bag 100 ML IVPB SCH ×3 (09:23→23:37)
[2021-06-25] MEDS: *HR* HYDROcodone/Acet 5/325 mg TABLET PO PRN ×3 (09:31→23:36)
[2021-06-25 09:54] LABS: Influenza A PCR Negative (Negative); Influenza B PCR Negative (Negative); Resp. Syncytial Virus PCR Negative (Negative)
[2021-06-25 10:13] LABS: SARS-CoV-2 by PCR (In House) Negative (Negative)
[2021-06-25] MEDS: Nystatin Cream 15 GM TUBE TP SCH ×3 (12:35→20:53)
[2021-06-26 04:19] LABS: Basophils % 0.6 %; Eosinophils # 0.2 K/mcL (0.0-0.6); Eosinophils % 2.9 %; Hematocrit 29.2 % (35.3-44.9); Hemoglobin 9.1 g/dL (11.5-15.4); Immature Granulocytes % 0.7 % (0-4); Lymphocytes # 1.7 K/mcL (0.6-4.6); Mean Corpuscular HGB Conc 31.2 g/dL (31.6-35.5); Mean Corpuscular Hemoglobin 26.8 pg (28.0-33.3); Mean Corpuscular Volume 86.1 fL (83.0-100.0); Mean Platelet Volume 10.1 fL (9.4-12.4); Monocytes # 0.6 K/mcL (0.0-1.3); Monocytes % 8.1 %; Neutrophils # 4.7 K/mcL (1.6-8.9); Platelet Count 225 K/mcL (140-400); Red Blood Count 3.39 M/mcL (3.82-4.97); Red Cell Distribution Width 15.7 % (11.5-14.5); Segmented Neutrophils % 64.7 %; White Blood Count 7.3 K/mcL (4.3-11.1)
[2021-06-26 04:41] LABS: BUN/Creatinine Ratio 22 (6-26); Blood Urea Nitrogen 14 mg/dL (8-23); Calcium 9.1 mg/dL (8.6-10.3); Carbon Dioxide 30 mEq/L (23-29); Chloride 100 mEq/L (98-107); Glucose 133 mg/dL (70-105); Magnesium 1.5 mg/dL (1.6-2.6); Osmolality,Calculated 286 (280-300); Potassium 3.7 mEq/L (3.5-5.1); Sodium 137 mEq/L (136-145); eGFR For African Americans > 60 (> 60); eGFR For Non-African Americans > 60 (> 60)
[2021-06-26] MEDS: *HR* Enoxaparin 40 MG/0.4 ML SYRINGE SQ SCH (05:26)
[2021-06-26] MEDS: *HR* HYDROcodone/Acet 5/325 mg TABLET PO PRN ×2 (06:07→12:33)
[2021-06-26] MEDS: Piperacillin/Tazobactam 3.375 GM in 0.9 % Sodium Chloride Mini Bag 100 ML IVPB SCH ×2 (08:58→15:16)
[2021-06-26] MEDS: Nystatin Cream 15 GM TUBE TP SCH ×3 (08:58→21:43)
[2021-06-26] MEDS: carvediloL 6.25 MG TABLET PO SCH ×2 (08:59→17:07)
[2021-06-26] MEDS: Isosorbide MONOnitrate (24 HR) 30 MG TAB.ER.24H PO SCH ×2 (08:59→21:42)
[2021-06-26] MEDS: Vitamin B Complex/Vit C/Vit E 1 EACH TABLET PO SCH (08:59)
[2021-06-26] MEDS: BuPROPion XL (24 HR) 150 MG TABLET PO SCH (08:59)
[2021-06-26] MEDS: Aspirin Enteric Coated 81 MG Tablet PO SCH (08:59)
[2021-06-26] MEDS: Insulin LISPRO 300 UNITS/3 ML VIAL SUBQ SCH ×4 (09:39→21:43)
[2021-06-26] MEDS ORDERED: *HR* Propofol 200 MG/20 ML VIAL IVP ONE (13:47)
[2021-06-26] MEDS ORDERED: Lidocaine -MPF 2% 5 ML VIAL ONE (13:47)
[2021-06-26] MEDS: *HR* HYDROmorphone 2 MG TABLET PO PRN ×2 (15:14→21:49)
[2021-06-27] MEDS: Piperacillin/Tazobactam 3.375 GM in 0.9 % Sodium Chloride Mini Bag 100 ML IVPB SCH ×3 (00:13→17:37)
[2021-06-27] MEDS: *HR* Enoxaparin 40 MG/0.4 ML SYRINGE SQ SCH (05:51)
[2021-06-27] MEDS: Insulin LISPRO 300 UNITS/3 ML VIAL SUBQ SCH ×4 (07:55→21:05)
[2021-06-27] MEDS: Vitamin B Complex/Vit C/Vit E 1 EACH TABLET PO SCH (08:17)
[2021-06-27] MEDS: Isosorbide MONOnitrate (24 HR) 30 MG TAB.ER.24H PO SCH ×2 (08:17→21:04)
[2021-06-27] MEDS: BuPROPion XL (24 HR) 150 MG TABLET PO SCH (08:17)
[2021-06-27] MEDS: Aspirin Enteric Coated 81 MG Tablet PO SCH (08:17)
[2021-06-27] MEDS: carvediloL 6.25 MG TABLET PO SCH ×2 (08:17→17:37)
[2021-06-27] MEDS: Nystatin Cream 15 GM TUBE TP SCH ×3 (08:17→21:04)
[2021-06-27] MEDS: *HR* HYDROmorphone 2 MG TABLET PO PRN (10:29)
[2021-06-27] MEDS: *HR* HYDROcodone/Acet 5/325 mg TABLET PO PRN (17:36)
[2021-06-28] MEDS: Piperacillin/Tazobactam 3.375 GM in 0.9 % Sodium Chloride Mini Bag 100 ML IVPB SCH ×3 (00:36→17:02)
[2021-06-28] MEDS: *HR* HYDROcodone/Acet 5/325 mg TABLET PO PRN ×4 (00:39→21:10)
[2021-06-28 05:17] LABS: Basophils # 0.1 K/mcL (0.0-0.2); Basophils % 0.9 %; Eosinophils # 0.2 K/mcL (0.0-0.6); Eosinophils % 2.7 %; Hematocrit 31.7 % (35.3-44.9); Hemoglobin 9.5 g/dL (11.5-15.4); Immature Granulocytes % 0.5 % (0-4); Lymphocytes # 1.9 K/mcL (0.6-4.6); Lymphocytes % 25.8 %; Mean Corpuscular Volume 86.8 fL (83.0-100.0); Mean Platelet Volume 10.2 fL (9.4-12.4); Monocytes # 0.5 K/mcL (0.0-1.3); Monocytes % 6.6 %; Neutrophils # 4.7 K/mcL (1.6-8.9); Platelet Count 289 K/mcL (140-400); Red Blood Count 3.65 M/mcL (3.82-4.97); Red Cell Distribution Width 15.9 % (11.5-14.5); Segmented Neutrophils % 63.5 %; White Blood Count 7.4 K/mcL (4.3-11.1)
[2021-06-28 05:33] LABS: BUN/Creatinine Ratio 19 (6-26); Blood Urea Nitrogen 13 mg/dL (8-23); Calcium 9.3 mg/dL (8.6-10.3); Carbon Dioxide 29 mEq/L (23-29); Chloride 102 mEq/L (98-107); Glucose 125 mg/dL (70-105); Magnesium 1.7 mg/dL (1.6-2.6); Osmolality,Calculated 286 (280-300); Potassium 3.6 mEq/L (3.5-5.1); Sodium 137 mEq/L (136-145); eGFR For African Americans > 60 (> 60); eGFR For Non-African Americans > 60 (> 60)
[2021-06-28] MEDS: *HR* Enoxaparin 40 MG/0.4 ML SYRINGE SQ SCH (06:53)
[2021-06-28] MEDS: carvediloL 6.25 MG TABLET PO SCH ×2 (09:28→17:03)
[2021-06-28] MEDS: Vitamin B Complex/Vit C/Vit E 1 EACH TABLET PO SCH (09:28)
[2021-06-28] MEDS: Isosorbide MONOnitrate (24 HR) 30 MG TAB.ER.24H PO SCH ×2 (09:28→21:10)
[2021-06-28] MEDS: BuPROPion XL (24 HR) 150 MG TABLET PO SCH (09:28)
[2021-06-28] MEDS: Aspirin Enteric Coated 81 MG Tablet PO SCH (09:28)
[2021-06-28] MEDS: Insulin LISPRO 300 UNITS/3 ML VIAL SUBQ SCH ×4 (09:29→21:10)
[2021-06-28] MEDS: Nystatin Cream 15 GM TUBE TP SCH ×3 (09:31→21:10)
[2021-06-29] MEDS: Piperacillin/Tazobactam 3.375 GM in 0.9 % Sodium Chloride Mini Bag 100 ML IVPB SCH ×3 (00:32→17:56)
[2021-06-29] MEDS: *HR* Enoxaparin 40 MG/0.4 ML SYRINGE SQ SCH (06:10)
[2021-06-29] MEDS: BuPROPion XL (24 HR) 150 MG TABLET PO SCH (09:34)
[2021-06-29] MEDS: Isosorbide MONOnitrate (24 HR) 30 MG TAB.ER.24H PO SCH ×2 (09:34→19:43)
[2021-06-29] MEDS: carvediloL 6.25 MG TABLET PO SCH (09:34)
[2021-06-29] MEDS: Vitamin B Complex/Vit C/Vit E 1 EACH TABLET PO SCH (09:34)
[2021-06-29] MEDS: Aspirin Enteric Coated 81 MG Tablet PO SCH (09:34)
[2021-06-29] MEDS: *HR* HYDROcodone/Acet 5/325 mg TABLET PO PRN (10:01)
[2021-06-29] MEDS: Insulin LISPRO 300 UNITS/3 ML VIAL SUBQ SCH ×4 (10:23→19:46)
[2021-06-29] MEDS: Nystatin Cream 15 GM TUBE TP SCH ×3 (12:45→19:44)
[2021-06-29] MEDS: carvediloL 25 MG TABLET PO SCH (19:44)
[2021-06-30] MEDS: Piperacillin/Tazobactam 3.375 GM in 0.9 % Sodium Chloride Mini Bag 100 ML IVPB SCH ×2 (02:04→11:35)
[2021-06-30 04:30] VITALS: PULSE 75
[2021-06-30] MEDS: *HR* Enoxaparin 40 MG/0.4 ML SYRINGE SQ SCH (05:54)
[2021-06-30 06:25] VITALS: BP 136/68; TEMP 98; O2SAT 94
[2021-06-30] MEDS ORDERED: lisinopriL 10 MG TABLET PO SCH (09:00)
[2021-06-30] MEDS: BuPROPion XL (24 HR) 150 MG TABLET PO SCH (09:41)
[2021-06-30] MEDS: carvediloL 25 MG TABLET PO SCH (09:41)
[2021-06-30] MEDS: Vitamin B Complex/Vit C/Vit E 1 EACH TABLET PO SCH (09:41)
[2021-06-30] MEDS: Aspirin Enteric Coated 81 MG Tablet PO SCH (09:41)
[2021-06-30] MEDS: Nystatin Cream 15 GM TUBE TP SCH (09:42)
[2021-06-30] MEDS: *HR* HYDROcodone/Acet 5/325 mg TABLET PO PRN (10:53)
[2021-06-30] MEDS: Isosorbide MONOnitrate (24 HR) 30 MG TAB.ER.24H PO SCH (11:35)
[2021-06-30] MEDS: Insulin LISPRO 300 UNITS/3 ML VIAL SUBQ SCH (11:35)
== END 2021-06-30 12:30 | disposition home or self-care (01) | DRG 854 ==
LOC: EMEROOARM 15:24 → 4WAOSI 15:24 → SUATTDRO 19:38 → 4WAOSI 20:49 → SUATTDRO 06-24 18:45
PROVIDERS: ADMIT Internal Medicine; ATTEND Internal Medicine